=== PATIENT | female | born 1995 | race Caucasian/White ===

== ENCOUNTER 2018-10-29 21:31 | Emergency (ER) | payer OTHER | END 2018-10-29 23:42 | disposition home or self-care (01) | LOC: FTE 21:31 | DX: S61.300A Unspecified open wound of right index finger with damage to nail, initial encounter (principal); W22.8XXA Striking against or struck by other objects, initial encounter; Y92.9 Unspecified place or not applicable | CPT/HCPCS: 29130; 99283-25 ==